=== PATIENT | male | born 1985 | race Caucasian/White ===

== ENCOUNTER 2018-10-28 21:44 | Emergency (ER) | payer OTHER ==
[~2018-10-28] VITALS: Ht 180.3 cm; Wt 93.0 kg
[2018-10-28 22:01] VITALS: BP 5/11
--- NOTE | 2018-10-28 22:07 | NUR ---
PT PLACED IN C COLLAR ON ARRIVAL
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
--- NOTE | 2018-10-28 23:44 | NUR ---
PT TAKEN TO ROOM 1, C-COLLAR IN PLACE. AWAKE ALERT SKIN W/D RESP NONLAB, NV'S INTACT
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
[2018-10-28] MEDS ORDERED: TETANUS/DIPHTHERIA TOX ADULT 0.5 ML SYR ONE (23:49)
[2018-10-29] MEDS ORDERED: TETANUS/DIPHTHERIA TOX ADULT 0.5 ML SYR IM ONE
--- NOTE | 2018-10-29 00:10 | NUR ---
TRANSFER INITIATED TO [facility], SPOKE TO TEX AT TRANSFER CENTER,
--- NOTE | 2018-10-29 00:55 | NUR ---
REPORT GIVEN TO [facility]
--- NOTE | 2018-10-29 01:00 | NUR ---
MOT/FACESHEET FAXED TO [facility]; UNABLE TO PRINT (FACILITY WIDE) AT THIS TIME, PT SUMMARY TO BE FAXED WHEN PRINTERS ARE AVAILABLE
== END 2018-10-29 01:00 | disposition short-term general hospital (02) ==
LOC: ER 21:44
DX: S12.501A Unspecified nondisplaced fracture of sixth cervical vertebra, initial encounter for closed fracture (principal); S01.01XA Laceration without foreign body of scalp, initial encounter; W16.522A Jumping or diving into swimming pool striking bottom causing other injury, initial encounter; Y93.12 Activity, springboard and platform diving; Y92.016 Swimming-pool in single-family (private) house or garden as the place of occurrence of the external cause; F17.210 Nicotine dependence, cigarettes, uncomplicated
CPT/HCPCS: 70450; 72125; 90471; 90714; 99283; 99284

== ENCOUNTER 2022-10-07 17:02 | Emergency (ER) | payer OTHER ==
[~2022-10-07] VITALS: Ht 180.3 cm; Wt 93.0 kg
[2022-10-07] MEDS ORDERED: AMOX TR-K CLV1 EAC2 PO (17:24)
== END 2022-10-07 18:15 | disposition home or self-care (01) ==
LOC: ER 17:21
DX: H66.93 Otitis media, unspecified, bilateral (principal); J06.9 Acute upper respiratory infection, unspecified; Z20.822 Contact with and (suspected) exposure to COVID-19
CPT/HCPCS: 99283; U0002